=== PATIENT | female | born 1970 | race African-American/Black ===

== ENCOUNTER 2018-09-18 17:16 | Emergency (ER) | payer OTHER ==
[2018-09-18 17:26] VITALS: BP 145/103; PULSE 94; BMI 27.6
[2018-09-18] MEDS ORDERED: DIPHTH,PERTUSS(ACELL),TET 0.5 ML DISP.SYRIN IM ONE ×2 (18:14→18:15)
--- NOTE | 2018-09-18 18:16 | PDOC ---
History of Present Illness - General Chief Complaint: Laceration Stated Complaint: Laceration Time Seen by Provider: 09/18/18 18:04 - History of Present Illness Initial Comments: 09/18/18 18:14 48-year-old female with a past medical history significant for hypertension presents for evaluation of a laceration on her right thumb which occurred while cutting chicken at home. Past History - Past Medical History Allergies/Adverse Reactions: Allergies Allergy/AdvReac Type Severity Reaction Status Date / Time No Known Allergies Allergy Verified 09/18/18 17:25 Home Medications: Ambulatory Orders NK [No Known Home Medication] 09/18/18 COPD: No HTN: Yes - Surgical History Cardiac Surgery: No Cholecystectomy: No - Immunization History Immunization Up to Date: No - Suicide/Smoking/Psychosocial Hx Smoking History: Never smoked Have you smoked in the past 12 months: No Information on smoking cessation initiated: No Hx Alcohol Use: No Drug/Substance Use Hx: No Review of Systems - Review of Systems Integumentary: Yes: See HPI *Physical Exam - Vital Signs Last Vital Signs Temp Pulse Resp BP Pulse Ox 94 H 18 145/103 H 99 09/18/18 17:23 09/18/18 17:23 09/18/18 17:23 09/18/18 17:23 - Physical Exam Comments: 09/18/18 18:15 There is a small subcentimeter laceration on the radial aspect of the right thumb without exposure of subcutaneous fat. No gross sensorimotor deficits flexor and extensor tendon function work Moderate Sedation - Procedure Monitoring Vital Signs: Procedure Monitoring Vital Signs Temperature Pulse Rate 94 H 09/18/18 17:23 Respiratory Rate 18 09/18/18 17:23 Blood Pressure 145/103 H 09/18/18 17:23 O2 Sat by Pulse Oximetry (%) 99 09/18/18 17:23 Medical Decision Making - Medical Decision Making 09/18/18 18:15 The wound was irrigated with soap and water edges approximated and held together with one single Steri-Strip *DC/Admit/Observation/Transfer Diagnosis at time of Disposition: Laceration of thumb - Discharge Dispostion Disposition: HOME Condition at time of disposition: Stable Decision to Admit order: No - Referrals Referrals: Luis Antonio Ac [Primary Care Provider] - Ambrosio Ramos MD [Staff Physician] - - Patient Instructions Printed Discharge Instructions: DI for Laceration Repair Steri-Strips Additional Instructions: Keep the wound clean and dry for the next 48 hours. After 48 hours may wash with soap and water and leave the wound open to air. The Steri-Strips will fall off by themselves U do not peel them off. May follow-up with hand surgery in 2- 3 days for further evaluation and treatment options or return to the emergency room should you have any further concerns. Your tetanus was updated today. - Post Discharge Activity
== END 2018-09-18 18:19 | disposition home or self-care (01) ==
LOC: JERFT 17:16
PROC: 3E0234Z Introduction of Serum, Toxoid and Vaccine into Muscle, Percutaneous Approach (ICD-10-PCS; principal; 2018-09-18)
DX: S61.011A Laceration without foreign body of right thumb without damage to nail, initial encounter (principal); W26.0XXA Contact with knife, initial encounter; Y93.G1 Activity, food preparation and clean up; Y92.89 Other specified places as the place of occurrence of the external cause; I10 Essential (primary) hypertension
CPT/HCPCS: 90471; 90715; 99281-25